=== PATIENT | female | born 1995 | race Caucasian/White ===

== ENCOUNTER 2017-04-09 09:50 | Emergency (ER) | payer OTHER ==
[~2017-04-09] VITALS: Ht 160 cm; Wt 49.9 kg
[~2017-04-09 09:50] MED LIST: BCPILLS PO
[2017-04-09 10:09] VITALS: BP 99/67; TEMP 37; Ht 160 cm; Wt 49.9 kg
--- NOTE | 2017-04-09 10:42 | EMERGENCY ROOM VISIT NOTE ---
History Report prepared by Denilson: Jose Daniel Chairez Under the Supervision of: Dr. Leroy Solis M.D. First contact with patient: 10:34 Chief Complaint: KNEEPAIN Stated Complaint: HURT MY KNEE History of Present Illness The patient is a 21 year old female who presents to the Emergency Room with complaints of a sudden left knee injury that occurred 2 nights ago. She says that while at work, she was walking and went to turn, and fell to the ground because it seemed like her left knee came out. The patient states that she felt a pop. She says that the pain is not that bad right now, and denies any swelling. She does not want her parents called. Source of History: patient Onset: 2 nights ago Position: knee (left) Symptom Intensity: pain not that bad Quality: other (no swelling) Timing: other (sudden) Note: Associated symptoms: Left knee pain. Denies swelling. Review of Systems See HPI for pertinent positives & negatives. A total of 10 systems reviewed and were otherwise negative. Past Medical & Surgical Medical Problems: (1) No chronic diseases present Family History No pertinent family history Social History Smoking Status: Never Smoker Marital Status: single Housing Status: lives with roommate Occupation Status: employed, student Current/Historical Medications Scheduled Control Pills ( Control Pills), 1 TAB PO DAILY Allergies Coded Allergies: No Known Allergies (Unverified , 04/09/15) Physical Exam Vital Signs Date Time Temp Pulse Resp B/P (MAP) Pulse Ox O2 Delivery O2 Flow Rate FiO2 04/09/17 11:07 73 18 100 04/09/17 10:09 37.0 99 18 99/67 97 Room Air Physical Exam GENERAL: Patient is a healthy-appearing well-nourished 21 year old female. HEAD: Normocephalic atraumatic EYES: Ocular movements intact pupils equal and react to light OROPHARYNX mucous membranes are moist no exudates present no erythema or edema present NECK: Supple no nuchal rigidity CHEST: Good equal expansion LUNGS: Clear and equal to auscultation CARDIAC: Normal S1 and S2 ABDOMEN: Soft nontender no guarding BACK: No CVA tenderness EXTREMITIES: Left knee has good range of motion. No pain with varus or valgus stress. Lax patella. NEURO: Patient is following commands and answering questions appropriately. Alert and oriented x3 Cranial Nerves 2-12 grossly intact Medical Decision & Procedures ER Provider Diagnostic Interpretation: X-ray results as stated below per interpretation by me and the radiologist: L KNEE 1 OR 2 VIEWS ROUTINE CLINICAL HISTORY: Left knee pain. COMPARISON: None FINDINGS: Alignment of the left knee is anatomic. There is no joint effusion. No fracture or osseous lesion is identified. IMPRESSION: Unremarkable left knee radiographs. Electronically signed by: Chucky Saldana M.D. 04/09/2017 10:49 AM Dictated Date/Time: 04/09/2017 10:49 AM ED Course 1033: Past medical records reviewed. The patient was evaluated in room B12B. A complete history and physical examination was performed. 1054: Upon reexamination the patient is resting comfortably. I discussed results and treatment plan with the patient. She verbalizes agreement and understanding. The patient is ready for discharge. Medical Decision Differential diagnosis: Etiologies such as fracture, dislocation, intra-abdominal, pneumothorax, intrathoracic , intracranial, neurologic, as well as other traumatic pathologies were entertained. This is a 21-year-old female who presents emergency department complaining of laxity to the left patella. I suspect that the patient dislocated this temporarily and then it was relocated. I offered to call this patient's parents to speak directly with them however she refused. She was sent for an x- ray which did not show any evidence of fracture dislocation or subluxation. I strongly recommended that the patient receive crutches as well as a knee immobilizer however she refused. I strongly recommended that the patient follow -up with orthopedics. Patient was in agreement with the treatment plan. Medication Reconcilliation Current Medication List: was personally reviewed by me Blood Pressure Screening Patient's blood pressure: Normal blood pressure Impression Primary Impression: Knee pain, left Scribe Attestation The scribe's documentation has been prepared under my direction and personally reviewed by me in its entirety. I confirm that the note above accurately reflects all work, treatment, procedures, and medical decision making performed by me. Departure Information Dispostion Home / Self-Care Referrals [facility] (PCP) Sunil Jackson MD Patient Instructions ED Dislocation Patella, Kneecap, Kneecap Patella Probs Evaluate, Kneecap Probs Common, Kneecap Probs Rehab, Kneecap and Knee Joint, My [facility] Additional Instructions Take 600 mg Ibuprofen every 6 hours You have been examined and treated today on an emergency basis only. This is not a substitute for, or an effort to provide, complete comprehensive medical care. It is impossible to recognize and treat all injuries or illnesses in a single emergency department visit. It is therefore important that you follow up closely with [facility]. Call as soon as possible for an appointment. Thank you for your time and consideration. I look forward to speaking with you again soon. Please don't hesitate to call us if you have any questions. Problem Qualifiers Primary Impression: Knee pain, left Chronicity: acute Qualified Codes: M25.562 - Pain in left knee
--- NOTE | 2017-04-09 10:51 | DIAGNOSTIC IMAGING REPORT ---
L KNEE 1 OR 2 VIEWS ROUTINE CLINICAL HISTORY: Left knee pain. COMPARISON: None FINDINGS: Alignment of the left knee is anatomic. There is no joint effusion. No fracture or osseous lesion is identified. IMPRESSION: Unremarkable left knee radiographs. Electronically signed by: Chucky Saldana M.D. 04/09/2017 10:49 AM Dictated Date/Time: 04/09/2017 10:49 AM
[2017-04-09 11:07] VITALS: PULSE 73; O2SAT 100
== END 2017-04-09 11:08 | disposition home or self-care (01) ==
LOC: C.EDB 09:52
DX: M25.562 Pain in left knee (principal); W18.30XA Fall on same level, unspecified, initial encounter; Z79.3 Long term (current) use of hormonal contraceptives